=== PATIENT | male | born 1945 | race African-American/Black ===

== ENCOUNTER 2022-03-20 10:22 | Day surgery (SDC) | payer MEDICARE, SELFPAY ==
--- NOTE | 2022-03-19 14:09 | HO.ANESPROP2 ---
Documented by User: Jennifer Saucedo NP 03/19/22 14:10 HPI - Anesthesia Eval Consult details Narrative: 76yo M for Colonoscopy [facility] Past Medical History Medical History Gout HTN (hypertension) Hypothyroidism Surgical History Surgical History H/O partial thyroidectomy History of ankle surgery History of back surgery History of right hip replacement Social History Social History Patient Tobacco Use Status: Never used Tobacco Use of substances other than those prescribed or required for medical reasons: No Are you DNR?: No Advance Directives: No Advance Directives Information Provided: Yes Advance Directives on File: No Meds Allergies Allergy/AdvReac Type Severity Reaction Status Date / Time Iodinated Contrast Media Allergy Unknown Unknown Verified 03/19/22 13:10 [IV Contrast Dye] Home Medications Medication Instructions Recorded Confirmed Last Taken Type allopurinol 300 mg tablet 1 tab PO DAILY 03/19/22 03/19/22 Unknown History colchicine 0.6 mg tablet 1 tab PO DAILY 03/19/22 03/19/22 Unknown History famotidine 40 mg tablet 1 tab PO BEDTIME 03/19/22 03/19/22 Unknown History finasteride 5 mg tablet 1 tab PO DAILY 03/19/22 03/19/22 Unknown History hydralazine 25 mg tablet 1 tab PO BID 03/19/22 03/19/22 Unknown History irbesartan 300 1 tab PO DAILY 03/19/22 03/19/22 Unknown History mg-hydrochlorothiazide 12.5 mg tablet Exam Exam Date and Time: March 19, 2022 3319 Assessment and Plan Assessment Anesthesia Assessment: Chart Reviewed Documented by User: Josefa Erickson MD 03/20/22 12:20 [facility] Past Medical History Medical History Gout HTN (hypertension) Hypothyroidism Functional capacity: independent ambulation Family History Family history of problems with anesthesia: No Surgical History Surgical History H/O partial thyroidectomy History of ankle surgery History of back surgery History of right hip replacement History of Problems with Anesthesia: No Social History Social History Patient Tobacco Use Status: Never used Tobacco Use of substances other than those prescribed or required for medical reasons: No Are you DNR?: No Advance Directives: No Advance Directives Information Provided: Yes Advance Directives on File: No Meds Allergies Allergy/AdvReac Type Severity Reaction Status Date / Time Iodinated Contrast Media Allergy Unknown Unknown Verified 03/19/22 13:10 [IV Contrast Dye] Home Medications Medication Instructions Recorded Confirmed Last Taken Type allopurinol 300 mg tablet 1 tab PO DAILY 03/19/22 03/19/22 Unknown History colchicine 0.6 mg tablet 1 tab PO DAILY 03/19/22 03/19/22 Unknown History famotidine 40 mg tablet 1 tab PO BEDTIME 03/19/22 03/19/22 Unknown History finasteride 5 mg tablet 1 tab PO DAILY 03/19/22 03/19/22 Unknown History hydralazine 25 mg tablet 1 tab PO BID 03/19/22 03/19/22 Unknown History irbesartan 300 1 tab PO DAILY 03/19/22 03/19/22 Unknown History mg-hydrochlorothiazide 12.5 mg tablet Exam Airway Mallampati Class: II TM Dist: >3cm Neck ROM: Full Heart: RRR Lungs: CTA Assessment and Plan Final Anesthetic Review Family History of Problems with Anesthesia: No History of Problems with Anesthesia: No ASA Class: II Final Preanesthetic Review: No Changes in Pt Med Stat, Meds/Allgs Chart Reviewed, Consent Obtained/Reviewed and Anes Risks/Benef Reviewed Patient Risk: Low Procedure Risk: Low Anesthetic Plan Anesthetic Plan: MAC: Disposition: Standard PACU
[2022-03-20 06:57] VITALS: BMI 33.3
[2022-03-20 11:14] VITALS: BP 149/84; PULSE 72; RESP 16; TEMP 37.1; O2SAT 99
[2022-03-20 12:53] VITALS: BP 98/68; PULSE 67; RESP 16; TEMP 36.8; O2SAT 95
--- NOTE | 2022-03-20 12:55 | P.BOP_ITS ---
Brief Operative Note Date of Service: 03/20/22 Pre-op diagnosis: Screening Post-op diagnosis: other (Colon polyp) Procedure: Colonoscopy to the cecum with hot snare polypectomy Surgeon: Manpreet Pierre Anesthesia: MAC Was an [employer] used for this Procedure?: No Estimated blood loss (mL): 0 Pathology: other (A. Ileocecal valve polyp) Condition: stable Disposition: PACU
--- NOTE | 2022-03-20 13:06 | HO.POSTANES ---
Post Anesthesia Evaluation Post Anesthesia Evaluation Vital Signs: Vital Signs Temp Pulse Resp BP Pulse Ox O2 Del Method O2 Flow Rate 03/20/22 12:53 98.2 F 67 16 98/68 95 Nasal Cannula with ETCO2 3 03/20/22 11:14 98.7 F 72 16 149/84 H 99 Room Air Anesthesia: Monitored Mental Status: Awake Pain Control: Satisfactory Nausea/Vomiting: None Hydration: Adequate Anesthesia-Related Issues: No Anes. Related Issues
[2022-03-20 13:08] VITALS: BP 126/75; PULSE 70; RESP 18; TEMP 36.8; O2SAT 97
--- NOTE | 2022-03-21 00:46 | OP_ITS ---
SURGEON: Manpreet Pierre MD INDICATIONS: The patient presents for evaluation of colorectal cancer screening. Full consent has been obtained from him for this, including risks of bleeding and perforation. PREOPERATIVE DIAGNOSIS: Colorectal cancer screening. POSTOPERATIVE DIAGNOSIS: PROCEDURE PERFORMED: Procedure was colonoscopy to the cecum with hot snare polypectomy. ESTIMATED BLOOD LOSS: COMPLICATIONS: ANESTHESIA: Monitored anesthesia care. ASSISTANTS: SPECIMENS: POSTOPERATIVE DIAGNOSES: Colorectal cancer screening, colon polyp, diverticulosis, and internal hemorrhoids. DESCRIPTION OF PROCEDURE: The patient was placed in the left lateral decubitus position. The digital rectal exam revealed no abnormalities. The Olympus video pediatric colonoscope was entered into the rectum and advanced to the cecum with the assistance of abdominal wall pressure. Once in the cecum, I did identify a normal-appearing cecal pouch with appendiceal orifice. There was transillumination of light deep in the right lower quadrant. The entire cecum was well visualized and appeared normal. The scope was slowly withdrawn assessing all mucosal surfaces carefully. Preparation was, for the most part, good throughout the colon but there were some small areas of mucus, which were irrigated and suctioned away as best as possible. Along the ileocecal valve was an approximately 10 mm grossly adenomatous polyp, which was removed by hot snare polypectomy and recovered by suction. The polypectomy site appeared clean, without any sign of residual polyp nor bleeding. I did not visualize any other polyps, colitis, nor angiodysplasia. There was a mild amount of sigmoid and descending colon diverticulosis. In the rectum, the scope was retroflexed visualizing internal hemorrhoids, but no other pathology. The rectal mucosa appeared normal. The scope was straightened and withdrawn from the patient. He tolerated the procedure well and was returned to the recovery area in stable condition. IMPRESSION: 1. Colon polyp. 2. Diverticulosis. 3. Internal hemorrhoids. PLAN: The results of the pathology will be checked. Given his age and the relatively minimal findings, I do not think he would need any further screening colonoscopies in the future. He was advised not to use any aspirin or NSAIDs for 1 week. MD MARYANNE Apodaca/CARLI / [id number]
== END 2022-03-20 13:57 | disposition home or self-care (01) ==
PROVIDERS: PCP Internal Medicine; Visit Provider Internal Medicine
PROC: 0DJD8ZZ Inspection of Lower Intestinal Tract, Via Natural or Artificial Opening Endoscopic (ICD-10-PCS; CPT 45378; principal; 2022-03-20 11:30)
DX: Z12.11 Encounter for screening for malignant neoplasm of colon (principal); D12.0 Benign neoplasm of cecum; K57.30 Diverticulosis of large intestine without perforation or abscess without bleeding; K64.8 Other hemorrhoids; K21.9 Gastro-esophageal reflux disease without esophagitis; I10 Essential (primary) hypertension; E03.9 Hypothyroidism, unspecified; M10.9 Gout, unspecified; N40.0 Benign prostatic hyperplasia without lower urinary tract symptoms; Z79.899 Other long term (current) drug therapy; Z91.041 Radiographic dye allergy status
CPT/HCPCS: 45385; 88305